=== PATIENT | male | born 1975 | race Caucasian/White ===

== ENCOUNTER → 2017-02-02 | Outpatient (CLI) | payer OTHER ==
[~2017-02-02] MED LIST: COMMODE 3-IN-11 MIS; GABA300C5 PO; GABA600T PO; HYDR-3516 PO; HYDR-3583 PO; MOBI15TA PO; NICO14DI T-DERMAL; WALKER WHEELS/F1 MIS
[2017-02-02 08:45] LABS: AUTOMATED NEUTROPHIL # 4.2 TH/MM3 (1.8-7.7); BASOPHIL % 0.5 % (0.0-2.0); EOSINOPHIL # 0.3 TH/MM3 (0-0.4); EOSINOPHIL % 3.5 % (0.0-4.0); HEMATOCRIT 46.5 % (39.0-51.0); HEMO FLAGS DIFF FINAL; LYMPH % 29.8 % (9.0-44.0); LYMPHOCYTE # 2.3 TH/MM3 (1.0-4.8); MEAN CELL VOLUME 90.2 FL (80.0-100.0); MEAN CORPUSCULAR HEMOGLOBIN 30.7 PG (27.0-34.0); MONO % 10.9 % (0.0-8.0); NEUT % 55.3 % (16.0-70.0); PLATELET COUNT 206 TH/MM3 (150-450); RED BLOOD COUNT 5.15 MIL/MM3 (4.50-5.90); RED CELL DISTRIBUTION WIDTH 13.4 % (11.6-17.2); WHITE BLOOD COUNT 7.6 TH/MM3 (4.0-11.0)
[2017-02-02 08:49] LABS: INTERNATIONAL NORMALIZED RATIO 0.9 RATIO; PROTHROMBIN TIME - PATIENT 10.4 SEC (9.8-11.6)
[2017-02-02 08:51] LABS: BLOOD, URINE NEG (NEG); GLUCOSE,URINE NEG (NEG); KETONE, URINE NEG (NEG); NITRITE,URINE NEG (NEG); URINE COLOR LIGHT-YELLOW (YELLW/STRAW)
[2017-02-02 08:53] LABS: COMMENT (UR) CULT NOT INDICATED; CULTURE IF INDICATED CULT NOT INDICATED
[2017-02-02 09:12] LABS: ANION GAP 6 MEQ/L (5-15); AST (GOT) 42 U/L (15-37); BICARBONATE 28.1 MEQ/L (21.0-32.0); BLOOD UREA NITROGEN 11 MG/DL (7-18); CHLORIDE 105 MEQ/L (98-107); GLOMERULAR FILTRATION RATE 103 ML/MIN (>89); GLUCOSE,FASTING 94 MG/DL (74-99); POTASSIUM 4.5 MEQ/L (3.5-5.1); SODIUM (NA) 139 MEQ/L (136-145)
[2017-02-02 09:17] LABS: ALKALINE PHOSPHATASE 99 U/L (45-117); ALT (GPT) 73 U/L (12-78); TOTAL BILIRUBIN ADULT 0.3 MG/DL (0.2-1.0)
--- NOTE | 2017-02-02 09:48 | RADRPT ---
EXAM DATE/TIME: 02/02/2017 09:00 [facility] COMPARISON: No previous studies available for comparison. INDICATIONS : Evaluate for pneumonia, pneumothorax, or communicable disease. Pre op for lumbar fusion. MEDICAL HISTORY : None. SURGICAL HISTORY : Tonsillectomy. Discectomy, lumbar. ENCOUNTER: Initial ACUITY: 1 day PAIN SCORE: 0/10 LOCATION: chest FINDINGS: PA and lateral views of the chest demonstrate the lungs to be symmetrically aerated without evidence of mass, infiltrate or effusion. The cardiomediastinal contours are unremarkable. Osseous structure s are intact. CONCLUSION: 1. No acute cardiopulmonary disease. Ivring Townsend MD on February 02, 2017 at 9:37 Board Certified Radiologist. This report was verified electronically.
[2017-02-02 11:10] LABS: MRSA PCR NEGATIVE (NEGATIVE); STAPH AUREUS PCR NEGATIVE (NEGATIVE)
--- NOTE | 2017-02-02 15:13 | EKG ---
Date Performed: 02/02/2017 Time Performed: 08:13:07 PTAGE: 41 years EKG: SINUS BRADYCARDIA BORDERLINE ECG NO PREVIOUS TRACING DOCTOR: Ragini Price Interpretating Date/Time 02/02/2017 15:11:54
== END ==
LOC: CPRE 07:49
PROVIDERS: ATTEND Neurological Surgery
DX: Z01.810 Encounter for preprocedural cardiovascular examination (principal); Z01.811 Encounter for preprocedural respiratory examination; Z01.812 Encounter for preprocedural laboratory examination; Z01.818 Encounter for other preprocedural examination; M51.26 Other intervertebral disc displacement, lumbar region; R94.31 Abnormal electrocardiogram [ECG] [EKG]
CPT/HCPCS: 36415; 71020; 80053; 81001; 85025; 85610; 85730; 87640; 87641; 93005

== ENCOUNTER 2017-02-09 06:35 | Inpatient (IN) | payer OTHER ==
[~2017-02-09] VITALS: Ht 185.4 cm; Wt 82.4 kg
[~2017-02-09 06:35] MED LIST changes: -COMMODE 3-IN-11 MIS; -GABA300C5 PO; -HYDR-3583 PO; -MOBI15TA PO; -WALKER WHEELS/F1 MIS
[2017-02-09] MEDS ORDERED: GELFOAM SIZE 100 ONE (06:59)
[2017-02-09] MEDS ORDERED: GENTAMICIN SULFATE 80 MG/2 ML VIAL ONE (06:59)
[2017-02-09] MEDS ORDERED: BUPIVACAINE/EPINEPHRINE 0.5% PF 30 ML VIAL ONE (06:59)
[2017-02-09] MEDS ORDERED: THROMBIN (TOPICAL) 5,000 UNIT VIAL ONE (06:59)
[2017-02-09] MEDS ORDERED: ACETAMINOPHEN 1000 MG/100 ML 100 ML IV ONE (07:08)
[2017-02-09] MEDS ORDERED: HYDROmorphone HCL PF 2 MG/ML VIAL ONE (07:09)
[2017-02-09] MEDS ORDERED: ARTIFICIAL TEARS OPTH OINT 3.5 APPLIC/3.5 GM TUBO ONE (07:09)
[2017-02-09] MEDS ORDERED: PROPOFOL 500 MG/50 ML INJ 200 ML ONE (07:09)
[2017-02-09] MEDS ORDERED: ceFAZolin 2 GM PREMIX 50 ML ONE (07:21)
[2017-02-09] MEDS ORDERED: VANCOMYCIN HCL 1000 MG VIAL ONE (07:21)
[2017-02-09] MEDS: SODIUM CHLOR 0.9% 1000 ML INJ 1,000 ML IV SCH ×2 (07:30→15:10)
[2017-02-09] MEDS ORDERED: SODIUM CHLORID 0.9% 500 ML IV PRN (07:30)
[2017-02-09] MEDS ORDERED: CHLORHEXIDINE GLUCONATE 2 % 1 PACK (2 CLOTHS) TOPICAL PRN (07:30)
[2017-02-09] MEDS ORDERED: METOPROLOL TARTRATE 25 MG TAB PO PRN (07:30)
[2017-02-09] MEDS ORDERED: POVIDONE IODINE 5% (ANTISEPSIS KIT) 4 APPLICATIONS EACH NARE PRN (07:30)
[2017-02-09] MEDS ORDERED: LACTATED RINGER'S 1000 ML IV PRN (07:30)
[2017-02-09] MEDS: VANCOMYCIN 1,000 MG/NS 250 ML IV SCH ×4 (07:53→08:00)
[2017-02-09] MEDS ORDERED: BISACODYL 10 MG SUPP RECTAL PRN (13:30)
[2017-02-09] MEDS ORDERED: ONDANSETRON HCL 4 MG/2 ML VIAL IV PUSH PRN (13:30)
[2017-02-09] MEDS ORDERED: RESP: ALBUTEROL 2.5 MG/3 ML NEB (PRN) INH (13:30)
[2017-02-09] MEDS ORDERED: cloNIDine HCL 0.1 MG TAB PO/NG PRN (13:30)
[2017-02-09] MEDS ORDERED: MORPHINE SULFATE 4 MG/ML INJ IV PUSH PRN (13:30)
[2017-02-09] MEDS ORDERED: MAGNESIUM HYDROXIDE SUSP 30 ML CUP PO PRN (13:30)
[2017-02-09] MEDS ORDERED: MENTHOL LOZENGE BUCCAL PRN (13:30)
[2017-02-09] MEDS ORDERED: ACETAMINOPHEN 325 MG TAB PO PRN (13:30)
[2017-02-09] MEDS ORDERED: PROMETHAZINE INJ 25 MG/ML VIAL IM/IV PRN (13:30)
[2017-02-09] MEDS ORDERED: NALOXONE HCL 0.4 MG/ML AMP IV PUSH PRN (13:30)
[2017-02-09] MEDS ORDERED: GLUCAGON 1 MG/ML VIAL OTHER PRN (13:30)
[2017-02-09] MEDS ORDERED: DEXTROSE 50% IN WATER 50 ML VIAL(D50) IV PUSH PRN (13:30)
[2017-02-09] MEDS ORDERED: diphenhydrAMINE HCL 50 MG/ML VIAL IV PUSH PRN (13:30)
[2017-02-09] MEDS ORDERED: *morphine SULFATE 8 MG/ML PERIprocedure ONLY ONE (14:30)
--- NOTE | 2017-02-09 14:31 | RADRPT ---
EXAM DATE/TIME: 02/09/2017 09:22 [facility] COMPARISON: No previous studies available for comparison. INDICATIONS : Post-op L5-S1 posterior lumbar fusion. MEDICAL HISTORY : None. SURGICAL HISTORY : None. ENCOUNTER: Initial ACUITY: 1 day PAIN SCORE: Non-responsive. LOCATION: Lumbar spine. FINDINGS: Anatomic alignment with transpedicular fixation and allograft L5-S1. Surgical drain is evident. CONCLUSION: Anatomic alignment. Todd Issa MD FACR on February 09, 2017 at 14:29 Board Certified Radiologist. This report was verified electronically.
--- NOTE | 2017-02-09 14:41 | PD.OP ---
Operative Report Date of Surgery: Feb 09, 2017 Preoperative Diagnosis: Recurrent L5-S1 disk herniation Postoperative Diagnosis: Recurrent L5-S1 disk herniation Procedure: L5-S1 redo laminectomy, interbody arthrodhesis using PEEK cage and autologous bone graft, L4-5 instrumental fixation using transpedicular screws and rods, L4- 5 posterolateral fusion using autologous bone graft and rods. Microsurgical dissection Anesthesia: general Surgeon: Urban Valdez Mult Au Matic Operator(s): Ronel Pagan Operation and Findings: INDICATIONS FOR THE SURGICAL PROCEDURE The patient is a 41 year-old male who presented with intractable mechanical back pain and cheyenne evidence of S1 lower extremity radiculopathy. he underwent 2 prior surgeries at L5-S1, with temporary resolution of his symptoms. This is his third of disk herniation at the same level. He failed maximum nonsurgical management including multiple modalities of conservative treatment as well as pain management interventions by an interventional pain specialist. A surgical decompression and arthrodhesis were indicated as a last resort. The [id number] details of the procedure, indications, alternatives, risks and potential complications were fully discussed with the patient. The patient fully understood. All his questions were answered. No guarantees were given. The patient voiced requesting the procedure and provided informed consents. He was offered the alternative of delaying the procedure and continuing with nonsurgical management. DETAILS OF THE SURGICAL PROCEDURE Prior to the procedure, the surgical incision was marked in the preoperative surgical holding room, and the procedure, risks, and potential complications revisited with the patient. Placement of electrodes for intraoperative neurophysiological monitoring was completed. The patient was taken to the operative room, and following induction of general anesthesia, endotracheal intubation was performed. A Bowers catheter, bilateral CHRISTINA hose and sequential compression devices were placed and kept throughout the procedure. The patient was positioned prone, over a Travis table over a Sp frame. All pressure in the preoperative surgical holding room points were carefully padded with eggcrate and gel mattress. The eyes were tapped shut after ointment was applied by the anesthesiologist to prevent corneal abrasion. A Patricia hugger was placed over the exposed lower body to maintain control of the core body temperature. The electrophysiological team placed the needles and electrodes in their proper location and baseline SSEP's and motor evoked potentials were registered. The entrance to each pedicles was marked using a C arm. The lumbar region was prepped and draped in the usual sterile fashion. The surgical procedure was performed in several steps as follow: SURGICAL APPROACH Once the patient was positioned, a localizing cross-table lateral x-ray was performed with a C-arm. Two paramedian small incisions were outlined on the skin approximately 3cm from the midline. The skin incisions were made with a # 10 blade. Small bleeders were controlled with the cautery. The dissection was then carried out into deper planes and through the thoracolumbar fascia with a Bovie. The intermuscular septum was identified and the muscles were blunted dissected along the septum. The facets and transverse process of L5 and S1 were exposed and the proper anatomical landmarks were identified. A microsurgical self-retaining retractor was placed on the incision, and a localizing lateralizing cross-table x-ray was performed with an instrument underneath the L5 lamina of the lumbar spine. INSTRUMENTAL FIXATION At this point in the procedure, placement of bilateral transpedicular screws was necessary for stabilization of the spine. Initially, the entry point for the screw was selected anatomically at the junction of the facet, with the transverse process, and the pars interarticularis at L5 and at the sacrum.This was started with a Giamshetti needle, followed by the use of an mcneal wire, and then a tap was used to create the threads for the screws. Finally bilateral transpedicular screws were carefully placed bilaterally at L4 and L5 under fluoroscopic visualization. An appropriate purchase was achieved with all screws. The position of each screw was assessed anatomically with an AP, lateral , oblique Xrays. An intraoperative scan view of the spine was then performed using the iso-centric c-arm. Each screw was then assessed electrophysiologically with a nerve stimulator. A scan was obtained using the isocentric C arm. SURGICAL DECOMPRESSION There was significant mass effect with compression of the neural structures. In order to relieve neural compression, it was necessary to perform a decompressive laminectomy, with decompression of the spinal canal and bilateral lateral recesses. At this point of the procedure the operative microscope was draped in the usual sterile fashion and brought to the field. The rest of the surgical procedure was performed using microdissection technique with the exception of the closure. Under the operating microscope, a decompressive laminectomy was carried out at L5-S1 as follow: Once the level was confirmed, the margins of the prior laminectomy were exposed. There was extensive scar tissue from the prior surgery. Once the bony margins were exposed, a laminectomy was performed extending the prior opening using the TPS drill with an AM-8 drill bit. A medial facetectomy was performed and the superior free border of the ligamentum flavum was dissected with a ligament dissector and removed with a thin footplate 2 mm Kerrison. The scar tissue was carefully dissected from the dural sac and the S1 nerve root was identified and followed towards its exit in the foramen. A foraminotomy was done. Epidural veins located laterally to the dural sac were coagulated with a bipolar and incised with micro scissors. Gentle medial retraction of the dural sac allowed inspection of the disc space. The patient had a very large, recurrent disc extrusion, causing mass effect over the exiting nerve root. A near complete facetectomy was necessary, resulting in further mechanical instability. The ligamentum Flavum and scar tissue were very adherent to the dural sac and during the dissection, ans extreme care was taken during the dissection. The exiting nerve roots were identified, and a wide foraminotomy was performed with a Kerrison in their trajectory towards the neural foramen. Epidural veins located laterally to the dural sac were coagulated with the bipolar cautery, and then incised using microscissors. Gentle medial retraction of the dural sac allowed me to expose the disc space for the discectomy. Upon completion of the discectomy, an excellent decompression of the neural structures was achieved. Increased motion was noted thorough the procedure, which was consistent with mechanical instability. INTERBODY ARTHRODHESIS In order to correct the narrowing of the disk space and maintain distraction of the space, and to achieve a solid interbody fusion, it was necessary the insertion of an interbody device into the disk space. Otherwise, the disk space would collapse, compromising the result of the surgical procedure. At this point of the procedure, the annulus fibrosus of the disk was carefully coagulated with a bipolar cautery and incised using an 11 bladed knife. Then, a microdiscectomy was carried out in a standard fashion using a combination of straight and up-biting pituitary forceps. A reverse angle curette was applied underneath the posterior longitudinal ligament, and used to push the disk fragments into the disk space, so they can be safely removed with a pituitary forceps. Once the discectomy was completed, it was necessary to decorticate the endplates, in order to eliminate the cartilaginous endplate and to expose healthy bone appropriate to perform the interbody fusion. The endplates at L5- S1 were then thoroughly decorticated using increasing size bone yany and ring curets, eliminating the cartilaginous fragments from both, the superior and inferior endplates. A disk space distractor was applied to the pedicle screws and gentle distraction was applied. This maneuver was assisted by the use of a disk distractor. Increased motility was noted at the disk, which was consistent with instability due to facet arthropathy. Once a thorough preparation of the disk space was achieved, the disk space was irrigated with antibiotic solution, and the interbody fusion was performed by carefully impacting PPEK cages filled with autologous iliac crest bone graft. The use of several shoe impactors with different angulation, allowed me for an excellent, proper position of the interbody cage. A solid position of the cage with good purchase was achieved. The position of the cages were assessed anatomically with a probe and radiologically with the C-arm. POSTEROLATERAL FUSION The posterolateral fusion is a critical component to the procedure, to prevent future fatigue and failure of the instrumental fixation. Initially, the transverse processes of the vertebral bodies, lateral surface of the facets and the lateral gutters of the spine were carefully cleaned, eliminating all soft tissue and muscle attachments. The area was then irrigated with a large amount of antibiotic solution. Subsequently, the transverse processes, lateral surface of the facets, and lateral gutters of the spine were thoroughly decorticated using the TPS drill with a 5mm cutting briana, exposing cancellous bone, in preparation for the posterolateral fusion. The incision was again irrigated with antibiotic solution. Then, the posterolateral fusion was then performed by carefully packing the lateral gutters of the spine at L5-S1 with autologous iliac crest bone combined with demineralized bone matrix. I packed as much bone as possible. COMLETION OF THE INSTRUMENTATION AND CLOSURE The rods were brought to the field, applied to all the screws, and the screw caps were sequentially applied. Compression was performed between the pedicle screws, and final tightening of the screws was completed using a torque wrench. A cross-link was used to connect the rods, in order to increase the stability of the construct. The cross link was secured using a torque wrench previously calibrated. The incision was again thoroughly irrigated with several liters of antibiotic solution, and hemostasis secured with the bipolar cautery. A Valsalva Maneuver performed by the anesthesiologist failed to show any evidence of cerebrospinal fluid leak or bleeding. A 7 mm Travis-Franco drain was left in the epidural space and externalized through a separate stab incision. The incision was then closed in planes. 0 Vicryl was used in an interrupted fashion to close the thoracolumbar fascia and the superficial fascia. The subcutaneous tissue was then approximated using 3-0 Vicryl in an interrupted fashion. Special care was taken to avoid space. The skin was then closed with 4-0 Vicryl in a running, subcuticular fashion. Each plane of closure was irrigated with antibiotic solution. At the end of the procedure the sponge, needle and instrument counts were all correct. Estimated blood loss was 200 cc. No blood transfusion was given. The entire procedure was performed using continuous electrophysiological monitoring of the somatosensorial evoked potentials and EMG. The patient received prophylactic antibiotics. The patient was then extubated and transferred to the recovery room in stable condition. Urban Valdez MD Feb 09, 2017 14:41
[2017-02-09] MEDS ORDERED: DO NOT ADM ANY ANTICOAGULANT DRUGS PRN (15:30)
[2017-02-09] MEDS: HYDROmorphone HCL PCA 6 MG/30 ML IV SCH (15:33)
[2017-02-09] MEDS: ceFAZolin 2 GM PREMIX 50 ML IV SCH (16:20)
[2017-02-09] MEDS ORDERED: INSULIN ASPART SUPPLEMENTAL SCALE SQ SCH (17:00)
[2017-02-09] MEDS: GABAPENTIN 300 MG CAP PO SCH (19:32)
[2017-02-09 20:25] VITALS: BP 111/68; PULSE 71; RESP 19; TEMP 96.7; O2SAT 95
[2017-02-09] MEDS: DOCUSATE SODIUM 100 MG CAP PO SCH (21:18)
[2017-02-09] MEDS: PCA - TOTAL MG DILAUDID DELIVERED PER SHIFT SCH (21:18)
[2017-02-10] VITALS (8 sets, daily range): BP systolic 101–126; BP diastolic 62–73; PULSE 59–67; RESP 16–18; TEMP 96.6–97.2; O2SAT 96–100
[2017-02-10] MEDS: ceFAZolin 2 GM PREMIX 50 ML IV SCH ×2 (00:25→09:56)
[2017-02-10] MEDS: SODIUM CHLOR 0.9% 1000 ML INJ 1,000 ML IV SCH ×4 (00:27→20:21)
[2017-02-10] MEDS: HYDROmorphone HCL PCA 6 MG/30 ML IV SCH ×3 (00:28→20:19)
[2017-02-10 07:07] LABS: AUTOMATED NEUTROPHIL # 15.6 TH/MM3 (1.8-7.7); HEMATOCRIT 38.7 % (39.0-51.0); HEMO FLAGS DIFF FINAL; LYMPH % 9.6 % (9.0-44.0); LYMPHOCYTE # 1.8 TH/MM3 (1.0-4.8); MEAN CORPUSCULAR HEMOGLOBIN 29.9 PG (27.0-34.0); MEAN CORPUSCULAR HGB CONC 33.2 % (32.0-36.0); MONO % 8.3 % (0.0-8.0); NEUT % 82.1 % (16.0-70.0); PLATELET COUNT 195 TH/MM3 (150-450); RED CELL DISTRIBUTION WIDTH 13.8 % (11.6-17.2)
[2017-02-10 07:33] LABS: BICARBONATE 27.1 MEQ/L (21.0-32.0); POTASSIUM 4.2 MEQ/L (3.5-5.1)
[2017-02-10] MEDS: NICOTINE 14 MG/24 HR PATCH T-DERMAL SCH (09:00)
[2017-02-10] MEDS: REMOVE OLD PATCH T-DERMAL SCH (09:00)
[2017-02-10] MEDS: CYCLOBENZAPRINE HCL 10 MG TAB PO PRN ×2 (09:57→17:49)
[2017-02-10] MEDS: PANTOPRAZOLE SOD 40 MG DELAYED RELEASE TAB PO SCH (09:57)
[2017-02-10] MEDS: GABAPENTIN 300 MG CAP PO SCH ×2 (09:57→17:50)
[2017-02-10] MEDS: DOCUSATE SODIUM 100 MG CAP PO SCH ×2 (09:57→20:19)
[2017-02-10] MEDS: ACETAMINOPHEN/HYDROcodone 325 MG/10 MG TAB PO PRN ×3 (09:58→22:25)
[2017-02-10] MEDS ORDERED: PNEUMOCOCCAL POLYVALENT INJ 25 MCG/0.5 ML SYR IM ONE (10:00)
--- NOTE | 2017-02-10 11:30 | HHI.NSPN ---
(Lluvia Menezes) Note Status Status: Progress Note (Lluvia Menezes) Interval History Interval History Mr. Berg s/p L5-S1 redo laminectomy, interbody arthrodhesis using PEEK cage and autologous bone graft, L4-5 instrumental fixation using transpedicular screws and rods, L4-5 posterolateral fusion using autologous bone graft and rods microsurgical dissection on Feb 09, 2017 12/: doing well, minimal postoperative pain, and currently controlled, reports radiculopathy better. eager to go home (Lluvia Menezes) Labs, Micro, & Vital Signs Results Date Time Temp Pulse Resp B/P (MAP) Pulse Ox O2 Delivery O2 Flow Rate FiO2 02/10/17 10:06 16 02/10/17 08:30 99 21 02/10/17 07:40 96.6 59 18 110/67 (81) 98 02/10/17 04:25 96.9 62 18 101/68 (79) 97 02/10/17 01:40 96 02/10/17 00:30 96.9 59 18 112/62 (79) 96 02/10/17 00:28 15 02/09/17 21:18 15 02/09/17 20:25 96.7 71 19 111/68 (82) 95 02/09/17 16:30 66 16 106/59 (75) 94 Room Air 02/09/17 16:00 72 16 109/64 (79) 96 02/09/17 15:33 16 02/09/17 15:30 74 16 109/67 (81) 96 Nasal Cannula 2 02/09/17 15:00 78 16 114/64 (81) 94 Nasal Cannula 2 02/09/17 14:45 82 16 111/63 (79) 95 Nasal Cannula 2 02/09/17 14:30 82 16 117/66 (83) 94 Nasal Cannula 2 02/09/17 14:15 82 16 118/65 (82) 94 Nasal Cannula 2 02/09/17 14:02 98.8 88 16 125/69 (87) 94 Nasal Cannula 2 Constitutional Vital Signs Date Time Temp Pulse Resp B/P (MAP) Pulse Ox O2 Delivery O2 Flow Rate FiO2 02/10/17 10:06 16 02/10/17 08:30 99 21 02/10/17 07:40 96.6 59 18 110/67 (81) 98 02/10/17 04:25 96.9 62 18 101/68 (79) 97 02/10/17 01:40 96 02/10/17 00:30 96.9 59 18 112/62 (79) 96 02/10/17 00:28 15 02/09/17 21:18 15 02/09/17 20:25 96.7 71 19 111/68 (82) 95 02/09/17 16:30 66 16 106/59 (75) 94 Room Air 02/09/17 16:00 72 16 109/64 (79) 96 02/09/17 15:33 16 02/09/17 15:30 74 16 109/67 (81) 96 Nasal Cannula 2 02/09/17 15:00 78 16 114/64 (81) 94 Nasal Cannula 2 02/09/17 14:45 82 16 111/63 (79) 95 Nasal Cannula 2 02/09/17 14:30 82 16 117/66 (83) 94 Nasal Cannula 2 02/09/17 14:15 82 16 118/65 (82) 94 Nasal Cannula 2 02/09/17 14:02 98.8 88 16 125/69 (87) 94 Nasal Cannula 2 (Lluvia Menezes) Physical Exam Mr. Berg is alert, awake and oriented to time, place and person. Speech is fluent. Wound with Optifoam dressing. FERNANDA drain in place. Cranial nerve examination: pupils equal, round and reactive to light. Extra- ocular movements are intact. Facial motor symmetric. Neck is soft and supple Motor: stable chronic 4+ to 5- left plantarflexion, otherwise moved all major muscle groups of LE's 5/5 Sensory examination is intact to light touch in lower extremities. (Lluvia Menezes) Medications Current Medications Current Medications Medications (Trade) Dose Ordered Sig/Myles Route PRN Reason Start Time Stop Time Status Last Admin Dose Admin Lactated Ringer's 1,000 ml @ 30 mls/hr Q24H PRN IV SEE LABEL COMMENTS 02/09/17 07:30 02/12/17 07:29 02/09/17 07:25 Sodium Chloride 500 ml @ 30 mls/hr [id number] PRN IV SEE LABEL COMMENTS 02/09/17 07:30 02/12/17 07:29 Metoprolol Tartrate (Lopressor) 25 mg MAGAZINE WORKER PRN PO SEE LABEL COMMENTS 02/09/17 07:30 02/12/17 07:29 Povidone Iodine (Betadine 5% Antisepsis Kit) 1 applic MAGAZINE WORKER PRN EACH NARE SEE LABEL COMMENTS 02/09/17 07:30 02/12/17 07:29 02/09/17 07:30 Chlorhexidine Gluconate (Chlorhexidine 2% Cloth) 3 pack MAGAZINE WORKER PRN TOPICAL SEE LABEL COMMENTS 02/09/17 07:30 02/12/17 07:29 02/09/17 07:00 Sodium Chloride 1,000 ml @ 30 mls/hr Q24H IV 02/09/17 07:30 Sodium Chloride 1,000 ml @ 100 mls/hr Q10H IV 02/09/17 13:30 02/10/17 09:59 Bisacodyl (Dulcolax Supp) 10 mg DAILY PRN RECTAL CONSTIPATION 02/09/17 13:30 Docusate Sodium (Colace) 100 mg BID PO 02/09/17 21:00 02/10/17 09:57 Magnesium Hydroxide (Milk Of Magnesia Liq) 30 ml DAILY PRN PO CONSTIPATION 02/09/17 13:30 Pantoprazole Sodium (Protonix) 40 mg DAILY PO 02/10/17 09:00 02/10/17 09:57 Ondansetron HCl (Zofran Inj) 4 mg Q6H PRN IV PUSH NAUSEA OR VOMITING 02/09/17 13:30 Promethazine HCl (Phenergan Inj) 25 mg Q4H PRN IM/IV NAUSEA OR VOMITING 02/09/17 13:30 Morphine Sulfate (Morphine Inj) 2 mg Q2H PRN IV PUSH breakthrough pain 02/09/17 13:30 Cyclobenzaprine HCl (Flexeril) 10 mg Q8H PRN PO MUSCLE SPASM 02/09/17 13:30 02/10/17 09:57 Clonidine (Catapres) 0.1 mg Q6H PRN PO/NG SYS BP GREATER THAN 170 MMHG 02/09/17 13:30 Acetaminophen (Tylenol) 650 mg Q4H PRN PO TEMPERATURE > 101.5 F 02/09/17 13:30 Menthol ([place] Sara) 1 lozenge UNSCH PRN BUCCAL SORE THROAT 02/09/17 13:30 Albuterol Sulfate (Albuterol Neb) 2.5 mg Q4HR NEB PRN INH WHEEZING 02/09/17 13:30 Naloxone HCl (Narcan Inj) 0.4 mg UNSCH PRN IV PUSH RESPIRATORY RATE LESS THAN 10 02/09/17 13:30 Diphenhydramine HCl (Benadryl Inj) 25 mg Q6H PRN IV PUSH ITCHING 02/09/17 13:30 Hydromorphone HCl (Dilaudid AIR DRIER Inj) 6 mg UNSCH IV 02/09/17 13:30 02/10/17 10:06 AIR DRIER Dosage Infused (Pha) 1 Q8HR .XX 02/09/17 14:00 02/09/17 21:18 Acetaminophen/ Hydrocodone Bitart ([place] 10-325 Mg) 1 tab Q4H PRN PO PAIN SCALE 1 TO 5 02/09/17 13:45 02/10/17 09:58 Acetaminophen/ Hydrocodone Bitart ([place] 10-325 Mg) 2 tab Q4H PRN PO PAIN SCALE 6 TO 10 02/09/17 13:45 Gabapentin (Neurontin) 600 mg TID PO 02/09/17 18:00 02/10/17 09:57 Nicotine (Habitrol 14 Mg Patch.24 Hr) 1 patch DAILY T-DERMAL 02/10/17 09:00 Miscellaneous Information 1 DAILY T-DERMAL 02/10/17 09:00 Miscellaneous Information ALL NURSING DEPARTME... UNSCH PRN .XX SEE LABEL COMMENTS 02/09/17 15:30 02/10/17 15:29 (Lluvia Menezes) Medical Decision Making MDM Remarks 41 y/o male s/p redo L5-S1 laminectomy with interbody arthrodesis, posterolateral fixation with transpedicular screws and rods 02/09/17 (Lluvia Menezes) Plan Plan Remarks cont pain control with AIR DRIER today may start weaning off, cont with Lortab prn start mobilizing out of bed with PT LSO when out of bed cont FERNANDA draining today, will dc tomorrow cont SCDs and TEDs for dvt prophylaxis anticipate dc home tomorrow if pain continues to be controlled (Lluvia Menezes) Attending Statement The exam, history, and the medical decision-making described in the above note were completed with the assistance of the mid-level provider. I reviewed and agree with the findings presented. I attest that I had a [id number] encounter with the patient on the same day, and personally performed and documented my assessment and findings in the medical record. (Urban Valdez MD) Lluvia Menezes Feb 10, 2017 11:30 Urban Valdez MD Feb 10, 2017 20:20
[2017-02-10] MEDS: PCA - TOTAL MG DILAUDID DELIVERED PER SHIFT SCH ×2 (14:00→22:00)
[2017-02-11 00:25] VITALS: BP 135/85; PULSE 72; RESP 16; TEMP 97.6; O2SAT 96
[2017-02-11] MEDS: ACETAMINOPHEN/HYDROcodone 325 MG/10 MG TAB PO PRN ×3 (03:24→10:55)
[2017-02-11 04:35] VITALS: BP 119/70; PULSE 61; RESP 16; TEMP 97.4; O2SAT 97
[2017-02-11] MEDS: SODIUM CHLOR 0.9% 1000 ML INJ 1,000 ML IV SCH ×2 (05:30→07:30)
[2017-02-11] MEDS: PCA - TOTAL MG DILAUDID DELIVERED PER SHIFT SCH (05:47)
[2017-02-11 08:00] VITALS: BP 130/80; PULSE 68; RESP 19; TEMP 96.6; O2SAT 98
[2017-02-11] MEDS: NICOTINE 14 MG/24 HR PATCH T-DERMAL SCH (09:00)
[2017-02-11] MEDS: REMOVE OLD PATCH T-DERMAL SCH (09:00)
[2017-02-11] MEDS: PANTOPRAZOLE SOD 40 MG DELAYED RELEASE TAB PO SCH (09:08)
[2017-02-11] MEDS: DOCUSATE SODIUM 100 MG CAP PO SCH (09:08)
[2017-02-11] MEDS: GABAPENTIN 300 MG CAP PO SCH (09:08)
[2017-02-11] MEDS ORDERED: HYDR-3583 PO (09:16)
[2017-02-11] MEDS ORDERED: WALKER WHEELS/F1 MIS (09:41)
[2017-02-11] MEDS ORDERED: COMMODE 3-IN-11 MIS (09:41)
--- NOTE | 2017-02-11 09:49 | HHI.DS ---
Discharge Summary Admission Date Feb 09, 2017 at 06:35 Discharge Date: Feb 11, 2017 Admitting Diagnosis s/p lumbar fusion (1) S/P lumbar spinal fusion ICD Code: Z98.1 - Arthrodesis status Brief History Mr. Berg is a 41 year-old male who presented with intractable mechanical back pain and cheyenne evidence of S1 lower extremity radiculopathy. he underwent 2 prior surgeries at L5-S1, with temporary resolution of his symptoms. This is his third of disk herniation at the same level. He failed maximum nonsurgical management including multiple modalities of conservative treatment as well as pain management interventions by an interventional pain specialist. A surgical decompression and arthrodesis were indicated as a last resort. CBC/BMP: 02/10/17 0603 02/10/17 0603 Significant Findings Laboratory Tests Test 02/10/17 06:03 White Blood Count 19.0 TH/MM3 (4.0-11.0) Red Blood Count 4.30 MIL/MM3 (4.50-5.90) Hemoglobin 12.9 GM/DL (13.0-17.0) Hematocrit 38.7 % (39.0-51.0) Neutrophils (%) (Auto) 82.1 % (16.0-70.0) Monocytes (%) (Auto) 8.3 % (0.0-8.0) Neutrophils # (Auto) 15.6 TH/MM3 (1.8-7.7) Monocytes # (Auto) 1.6 TH/MM3 (0-0.9) Calcium Level 7.9 MG/DL (8.5-10.1) PE at Discharge Mr. Berg is alert, awake and oriented to time, place and person. Speech is fluent. His wound with clean Optifoam dressing. Cranial nerve examination: pupils to be equal, round and reactive to light. Extra-ocular movements are intact. Facial motor are normal and symmetrical. Neck is soft and supple Motor: In the lower extremities, strength is 5/5 in both iliopsoas, quadriceps , hamstrings, dorsiflexion, extensor hallicus longus, right plantarflexion, stable chronic 4+ to 5- left plantarflexion. Sensory examination is intact to light touch x 4 extremities Respiratory: clear, nonlabored Hospital Course Mr. Berg underwent a L5-S1 redo laminectomy, interbody arthrodesis using PEEK cage and autologous bone graft, L4-5 instrumental fixation using transpedicular screws and rods, L4-5 posterolateral fusion using autologous bone graft and rods, microsurgical dissection on Feb 09, 2017 for recurrent L5- S1 disk herniation. His surgery went well without complications. His surgical pain controlled, he is ambulating. He will be discharged home in stable conditions. Wound care and activity restrictions were discussed. He will return in 1 week for follow up in the office. Pt Condition on Discharge: Good Discharge Disposition: Discharge Home Discharge Instructions DIET: Follow Instructions for: As Tolerated, No Restrictions ACTIVITIES You can perform: Weight Bearing As Liza ADDITIONAL Activity Instructio: Avoid strenuous activities, heavy lifting, bending, twisting, pushing, pulling or any other activities that will place stress on the spine. Wear LSO brace when out of bed. Avoid falls, use assistive devices as needed when ambulating. New Medications: Commode 3-in-1 (Commode 3-in-1) 1 Mis Mis EA .ROUTE DIRECTED, #1 0 Refills Walker with Front Wheels (Walker with Front Wheels) 1 Mis Mis EA .ROUTE DIRECTED, #1 0 Refills Hydrocodone/Acetaminophen (Hydrocodone-Acetamin 10-325 mg) 10 Mg-325 Mg Tablet 1 TAB PO Q8HR PRN for PAIN SCALE 1 TO 10, #90 TAB Continued Medications: Gabapentin (Gabapentin) 600 Mg Tab 600 MG PO TID for Pain, #90 TAB 2 Refills Hydrocodone-Acetaminophen (Hydrocodone-Acetaminophen) 5-325 mg Tab 1 TAB PO BID PRN for PAIN, TAB 0 Refills Nicotine Patch (Nicotine Patch) 14 Mg/24 Hr Patch 14 MG T-DERMAL DAILY for Smoking Cessation, #30 PATCH 0 Refills Lluvia Menezes Feb 11, 2017 09:49
--- NOTE | 2017-02-11 09:49 | HHI.DCPOC ---
Discharge Care Plan Diagnosis: (1) S/P lumbar spinal fusion Goals to Promote Your Health * To prevent worsening of your condition and complications * To maintain your health at the optimal level Directions to Meet Your Goals Take your medications as prescribed Follow your dietary instruction Follow activity as directed Keep your appointments as scheduled Take your immunizations and boosters as scheduled If your symptoms worsen call your PCP, if no PCP go to Urgent Care Center or Emergency Room Smoking is Dangerous to Your Health. Avoid second hand smoke Call the 24-hour hour crisis hotline for domestic abuse at Lluvia Menezes Feb 11, 2017 09:49
== END 2017-02-11 11:04 | disposition home or self-care (01) | DRG 455 ==
LOC: HSDI 06:35 → N06A 17:14
PROVIDERS: ADMIT Neurological Surgery; ATTEND Neurological Surgery
PROC: 0SG0071 Fusion of Lumbar Vertebral Joint with Autologous Tissue Substitute, Posterior Approach, Posterior Column, Open Approach (ICD-10-PCS; 2017-02-09)
PROC: 0ST40ZZ Resection of Lumbosacral Disc, Open Approach (ICD-10-PCS; 2017-02-09)
PROC: 0SG30AJ Fusion of Lumbosacral Joint with Interbody Fusion Device, Posterior Approach, Anterior Column, Open Approach (ICD-10-PCS; principal; 2017-02-09 08:27)
DX: M51.17 Intervertebral disc disorders with radiculopathy, lumbosacral region (principal); F17.210 Nicotine dependence, cigarettes, uncomplicated
CPT/HCPCS: 72100; 76000; 80048; 85025; 86850; 86900; 86901; 94150; C1713; J0131; J0690; J1170; J1580; J1815; J2270; J3370; J7030; J7050; J7120; L0484